=== PATIENT | male | born 1955 | race Two or more races ===

== ENCOUNTER 2019-09-22 12:46 | Emergency (ER) | payer SELFPAY ==
[~2019-09-22] VITALS: Ht 175.3 cm; Wt 73.6 kg
[2019-09-22 13:46] VITALS: BP 150/86
== END 2019-09-22 20:10 | disposition home or self-care (01) ==
LOC: EMS 12:48 → EDBD 12:48 → EMS 20:10
DX: F10.129 Alcohol abuse with intoxication, unspecified (principal); R60.0 Localized edema